=== PATIENT | female | born 1980 | race Caucasian/White ===

== ENCOUNTER 2022-09-02 21:56 | Emergency (ER) | payer OTHER ==
[~2022-09-02] VITALS: Ht 167.6 cm; Wt 64.4 kg
[2022-09-02 22:53] LABS: BASOPHILS % (AUTO) 0.6 % (0.0-5.0); HEMATOCRIT 40.9 % (36-48); LYMPHOCYTES % (AUTO) 26.9 % (21.0-51.0); MEAN CORPUSCULAR HEMOGLOBIN 31.7 pg (27.0-33.0); MEAN CORPUSCULAR VOLUME 93.2 fL (79-99); MONOCYTES % (AUTO) 6.6 % (3.0-13.0); NEUTROPHILS % (AUTO) 63.4 % (40.0-77.0); PLATELET COUNT (AUTO) 366 K/uL (130-400); RED BLOOD CELL COUNT(AUTO) 4.39 MIL/uL (4.00-5.50); WHITE BLOOD COUNT (AUTO) 10.8 K/uL (4.8-10.8)
[2022-09-02 22:58] LABS: APPEARANCE,URINE CLEAR (CLEAR); BILIRUBIN,URINE NEGATIVE (NEGATIVE); COLOR,URINE COLORLESS (YELLOW); GLUCOSE, URINE (UA) NEGATIVE (NEGATIVE); KETONES,URINE NEGATIVE (NEGATIVE); LEUKOCYTE ESTERASE ,URINE 500 Leu/uL (NEGATIVE); NITRATE,URINE NEGATIVE (NEGATIVE); OCCULT BLOOD,URINE NEGATIVE (NEGATIVE); PH,URINE 6.5 (5.0-8.0); PROTEIN,URINE NEGATIVE (NEGATIVE); UROBILINOGEN,URINE 0.2 mg/dL (0.2-1.0)
[2022-09-02 23:03] LABS: CREATININE 0.8 mg/dL (0.5-1.5); POTASSIUM 4.2 mmol/L (3.5-5.1)
[2022-09-02 23:06] LABS: BACTERIA,URINE RARE /HPF (None Seen); RBC,URINE 0-1 /HPF (0-1); SQUAMOUS EPITHELIAL CELL,UR RARE /HPF (0-2)
[2022-09-02 23:07] LABS: ALBUMIN 3.6 g/dL (3.5-5.0); TOTAL PROTEIN, SERUM 7.4 g/dL (6.0-8.3)
[2022-09-02] MEDS ORDERED: ALBUTEROL 0.083% 2.5 MG/3 ML INH IH ONE (23:43)
[2022-09-02] MEDS ORDERED: IPRATROPIUM 0.5 MG/2.5 ML INH IH ONE (23:44)
[2022-09-03] MEDS ORDERED: SOLU-MEDROL 125MG VIAL IVP ONE
[2022-09-03] MEDS ORDERED: ALBUTEROL 0.083% 2.5 MG/3 ML INH IH ONE
[2022-09-03] MEDS ORDERED: IPRATROPIUM/ALBUTEROL SULFATE 3 ML SOLUTION IH ONE
[2022-09-03] MEDS ORDERED: IPRATROPIUM 0.5 MG/2.5 ML INH IH ONE
[2022-09-03] MEDS ORDERED: CEFU500T67 PO (00:26)
[2022-09-03] MEDS ORDERED: PRED20TA3 PO (00:26)
[2022-09-03] MEDS ORDERED: CEFTRIAXONE 1G VIAL IVP ONE (00:30)
[2022-09-03] MEDS ORDERED: CEFTRIAXONE 1G VIAL ONE (00:30)
[2022-09-03 00:35] VITALS: BP 113/65
== END 2022-09-03 00:49 | disposition home or self-care (01) ==
LOC: EDH 21:56
DX: J44.1 Chronic obstructive pulmonary disease with (acute) exacerbation (principal); Z88.1 Allergy status to other antibiotic agents; F17.200 Nicotine dependence, unspecified, uncomplicated; Z98.890 Other specified postprocedural states; Z90.89 Acquired absence of other organs
CPT/HCPCS: 99285; 96374; 71045; 84484; 80053; 83880; 85025; 87088; 81001; 36415; 93005; 94640; 96375; J2930; J0696

== ENCOUNTER 2022-09-12 21:54 | Emergency (ER) | payer OTHER ==
[~2022-09-12] VITALS: Ht 167.6 cm; Wt 65.3 kg
[~2022-09-12 21:54] MED LIST: CEFU500T67 PO; PRED20TA3 PO
[2022-09-12] MEDS ORDERED: IOHEXOL 350 MG/ML 100ML INFUS..BTL IV ONE (22:44)
[2022-09-12] MEDS ORDERED: ACETAMINOPHEN 325 MG TAB PO ONE (23:00)
[2022-09-12 23:01] LABS: BASOPHILS % (AUTO) 0.4 % (0.0-5.0); EOSINOPHILS % (AUTO) 1.2 % (0.0-8.0); HEMATOCRIT 41.2 % (36-48); LYMPHOCYTES % (AUTO) 19.9 % (21.0-51.0); MEAN CORPUSCULAR HEMOGLOBIN 31.7 pg (27.0-33.0); MEAN CORPUSCULAR HGB CONC 33.7 g/dL (32.0-36.0); MEAN CORPUSCULAR VOLUME 94.1 fL (79-99); MONOCYTES % (AUTO) 5.9 % (3.0-13.0); NEUTROPHILS % (AUTO) 72.2 % (40.0-77.0); PLATELET COUNT (AUTO) 324 K/uL (130-400); RED BLOOD CELL COUNT(AUTO) 4.38 MIL/uL (4.00-5.50); RED CELL DISTRIBUTION WIDTH 13.7 % (11.0-15.5); WHITE BLOOD COUNT (AUTO) 11.1 K/uL (4.8-10.8)
[2022-09-12 23:25] LABS: INR 0.99 (0.85-1.15); PROTHROMBIN TIME 10.8 SEC (9.6-11.6)
[2022-09-12 23:27] LABS: PARTIAL THROMBOPLASTIN TIME 26.6 SEC (26.3-35.5)
[2022-09-12 23:36] LABS: ALBUMIN 3.9 g/dL (3.5-5.0); CREATININE 0.8 mg/dL (0.5-1.5); POTASSIUM 3.7 mmol/L (3.5-5.1); TOTAL PROTEIN, SERUM 7.5 g/dL (6.0-8.3)
[2022-09-13] MEDS ORDERED: IBUP-1493 PO (00:20)
[2022-09-13] MEDS ORDERED: CYCL-309 PO (00:20)
[2022-09-13 00:30] VITALS: BP 109/72
== END 2022-09-13 01:15 | disposition home or self-care (01) ==
LOC: EDH 21:54
DX: R07.89 Other chest pain (principal); M54.2 Cervicalgia; J44.9 Chronic obstructive pulmonary disease, unspecified; F17.200 Nicotine dependence, unspecified, uncomplicated; Z88.1 Allergy status to other antibiotic agents; Z90.710 Acquired absence of both cervix and uterus; Z90.89 Acquired absence of other organs; Z98.890 Other specified postprocedural states; V49.9XXA Car occupant (driver) (passenger) injured in unspecified traffic accident, initial encounter; Y93.I9 Activity, other involving external motion; Y92.488 Other paved roadways as the place of occurrence of the external cause; Y99.8 Other external cause status
CPT/HCPCS: 99285; 70450; 84484; 80053; 85025; 85610; 85730; 36415; 72125; 71260; 74177; Q9967

== ENCOUNTER 2022-09-29 19:06 | Emergency (ER) | payer OTHER ==
[~2022-09-29] VITALS: Ht 167.6 cm; Wt 63.5 kg
[~2022-09-29 19:06] MED LIST changes: +CYCL-309 PO; +IBUP-1493 PO
[2022-09-29] MEDS ORDERED: LACTATED RINGERS 1000ML 1,000 ML IV ONE (20:00)
[2022-09-29] MEDS ORDERED: SOLU-MEDROL 125MG VIAL IVP ONE (20:00)
[2022-09-29] MEDS ORDERED: ONDANSETRON 4MG INJ IVP ONE ×2 (20:00→21:30)
[2022-09-29] MEDS ORDERED: MORPHINE 4 MG SYG IVP ONE (20:00)
[2022-09-29 20:36] LABS: BASOPHILS % (AUTO) 0.5 % (0.0-5.0); EOSINOPHILS % (AUTO) 1.7 % (0.0-8.0); HEMATOCRIT 40.6 % (36-48); LYMPHOCYTES % (AUTO) 23.4 % (21.0-51.0); MEAN CORPUSCULAR HGB CONC 34.5 g/dL (32.0-36.0); MEAN CORPUSCULAR VOLUME 92.9 fL (79-99); MONOCYTES % (AUTO) 7.3 % (3.0-13.0); NEUTROPHILS % (AUTO) 66.6 % (40.0-77.0); PLATELET COUNT (AUTO) 379 K/uL (130-400); RED BLOOD CELL COUNT(AUTO) 4.37 MIL/uL (4.00-5.50); RED CELL DISTRIBUTION WIDTH 12.9 % (11.0-15.5); WHITE BLOOD COUNT (AUTO) 8.9 K/uL (4.8-10.8)
[2022-09-29 20:59] LABS: ALBUMIN 3.4 g/dL (3.5-5.0); CREATININE 0.7 mg/dL (0.5-1.5); POTASSIUM 3.5 mmol/L (3.5-5.1); TOTAL PROTEIN, SERUM 6.8 g/dL (6.0-8.3)
[2022-09-29] MEDS ORDERED: HYDROMORPHONE 1 MG INJ IVP ONE ×2 (21:00→21:30)
[2022-09-29] MEDS ORDERED: ONDA4TAB10 PO (21:16)
[2022-09-29] MEDS ORDERED: OXYC-38 PO (21:16)
[2022-09-29] MEDS ORDERED: CIPR-278 PO (21:16)
[2022-09-29] MEDS ORDERED: PRED20TA3 PO (21:16)
[2022-09-29 21:17] VITALS: BP 132/70
== END 2022-09-29 21:49 | disposition home or self-care (01) ==
LOC: EDH 19:06
DX: K50.90 Crohn's disease, unspecified, without complications (principal); J44.9 Chronic obstructive pulmonary disease, unspecified; F17.200 Nicotine dependence, unspecified, uncomplicated; Z88.1 Allergy status to other antibiotic agents; Z90.49 Acquired absence of other specified parts of digestive tract; Z79.899 Other long term (current) drug therapy; Z98.890 Other specified postprocedural states; Z90.710 Acquired absence of both cervix and uterus
CPT/HCPCS: 99284; 96374; 96375; 80053; 83690; 85025; 36415; 96376; J1170 ×2; J2930; J2405 ×2; J2270

== ENCOUNTER 2022-10-03 15:32 | Emergency (ER) | payer OTHER ==
[~2022-10-03] VITALS: Ht 167.6 cm; Wt 63.5 kg
[~2022-10-03 15:32] MED LIST changes: +CIPR-278 PO; +ONDA4TAB10 PO; +OXYC-38 PO
[2022-10-03] MEDS ORDERED: LACTATED RINGERS 1000ML 1,000 ML IV ONE (16:00)
[2022-10-03] MEDS ORDERED: PANTOPRAZOLE 40 MG/VIAL IVP ONE (16:00)
[2022-10-03] MEDS ORDERED: ONDANSETRON 4MG INJ IVP ONE (16:00)
[2022-10-03 16:04] LABS: BASOPHILS % (AUTO) 0.2 % (0.0-5.0); HEMATOCRIT 37.7 % (36-48); LYMPHOCYTES % (AUTO) 10.9 % (21.0-51.0); MEAN CORPUSCULAR HEMOGLOBIN 31.2 pg (27.0-33.0); MEAN CORPUSCULAR HGB CONC 33.7 g/dL (32.0-36.0); MEAN CORPUSCULAR VOLUME 92.6 fL (79-99); MONOCYTES % (AUTO) 2.5 % (3.0-13.0); NEUTROPHILS % (AUTO) 85.6 % (40.0-77.0); PLATELET COUNT (AUTO) 337 K/uL (130-400); RED BLOOD CELL COUNT(AUTO) 4.07 MIL/uL (4.00-5.50); RED CELL DISTRIBUTION WIDTH 12.8 % (11.0-15.5); WHITE BLOOD COUNT (AUTO) 11.3 K/uL (4.8-10.8)
[2022-10-03 16:21] LABS: CREATININE 0.8 mg/dL (0.5-1.5); POTASSIUM 3.6 mmol/L (3.5-5.1)
[2022-10-03 16:31] LABS: ALBUMIN 3.2 g/dL (3.5-5.0); TOTAL PROTEIN, SERUM 6.4 g/dL (6.0-8.3)
[2022-10-03] MEDS ORDERED: DIATR MEGLU/DIATRIZOATE SODIUM 30 ML BOTTLE ONE (16:37)
[2022-10-03 18:12] LABS: AMPHET/METH SCREEN,URINE NEGATIVE (NEGATIVE); BARBITURATE SCREEN, URINE NEGATIVE (NEGATIVE); BENZODIAZEPINES SCREEN,URINE NEGATIVE (NEGATIVE); CANNABINOID SCREEN,URINE NEGATIVE (NEGATIVE); COCAINE SCREEN,URINE NEGATIVE (NEGATIVE); OPIATE SCREEN,URINE NEGATIVE (NEGATIVE); PHENCYCLIDINE SCREEN,URINE NEGATIVE (NEGATIVE)
[2022-10-03] MEDS ORDERED: IOHEXOL 350 MG/ML 100ML INFUS..BTL IV ONE (18:14)
[2022-10-03 20:15] VITALS: BP 122/64
== END 2022-10-03 20:16 | disposition home or self-care (01) ==
LOC: EDH 15:32
DX: K52.9 Noninfective gastroenteritis and colitis, unspecified (principal); J44.9 Chronic obstructive pulmonary disease, unspecified; F17.200 Nicotine dependence, unspecified, uncomplicated; Z90.49 Acquired absence of other specified parts of digestive tract; Z90.710 Acquired absence of both cervix and uterus; Z79.1 Long term (current) use of non-steroidal anti-inflammatories (NSAID); Z79.2 Long term (current) use of antibiotics; Z79.899 Other long term (current) drug therapy; Z88.1 Allergy status to other antibiotic agents
CPT/HCPCS: 99285; 74177; 96374; 96375; 82270; 82550; 80053; 80305; 84702; 83690; 85025; 36415; J7120; Q9963; J2405 ×2; C9113; Q9967

== ENCOUNTER 2022-11-19 22:54 | Emergency (ER) | payer OTHER ==
[~2022-11-19] VITALS: Ht 167.6 cm; Wt 66.9 kg
[2022-11-19 23:15] LABS: BASOPHILS % (AUTO) 0.5 % (0.0-5.0); EOSINOPHILS % (AUTO) 1.7 % (0.0-8.0); HEMATOCRIT 39.8 % (36-48); LYMPHOCYTES % (AUTO) 22.4 % (21.0-51.0); MEAN CORPUSCULAR HEMOGLOBIN 31.2 pg (27.0-33.0); MEAN CORPUSCULAR HGB CONC 34.2 g/dL (32.0-36.0); MEAN CORPUSCULAR VOLUME 91.3 fL (79-99); NEUTROPHILS % (AUTO) 69.1 % (40.0-77.0); PLATELET COUNT (AUTO) 312 K/uL (130-400); RED BLOOD CELL COUNT(AUTO) 4.36 MIL/uL (4.00-5.50); WHITE BLOOD COUNT (AUTO) 9.4 K/uL (4.8-10.8)
[2022-11-19 23:20] LABS: APPEARANCE,URINE CLEAR (CLEAR); BILIRUBIN,URINE NEGATIVE (NEGATIVE); COLOR,URINE LIGHT-YELLOW (YELLOW); GLUCOSE, URINE (UA) NEGATIVE (NEGATIVE); KETONES,URINE NEGATIVE (NEGATIVE); LEUKOCYTE ESTERASE ,URINE NEGATIVE Leu/uL (NEGATIVE); NITRATE,URINE NEGATIVE (NEGATIVE); OCCULT BLOOD,URINE NEGATIVE (NEGATIVE); PH,URINE 5.5 (5.0-8.0); PROTEIN,URINE NEGATIVE (NEGATIVE); UROBILINOGEN,URINE 0.2 mg/dL (0.2-1.0)
[2022-11-19 23:25] LABS: CREATININE 0.8 mg/dL (0.5-1.5); POTASSIUM 3.5 mmol/L (3.5-5.1)
[2022-11-19 23:29] LABS: ALBUMIN 3.3 g/dL (3.5-5.0); TOTAL PROTEIN, SERUM 6.9 g/dL (6.0-8.3)
[2022-11-19] MEDS ORDERED: ONDANSETRON 4MG INJ IVP ONE (23:30)
[2022-11-20] MEDS ORDERED: CYANOCOBALAMIN (VITAMIN B-12) 1000 MCG/ML 1ML VIAL IM STA (00:24)
[2022-11-20] MEDS ORDERED: 0.9%NACL 1000ML 1,000 ML IV ONE (00:30)
[2022-11-20] MEDS ORDERED: IOHEXOL-350 75 ML VIAL IV ONE (01:19)
[2022-11-20] MEDS ORDERED: MESA800T PO (01:55)
[2022-11-20] MEDS ORDERED: BUDE3CAP10 PO (01:55)
[2022-11-20] MEDS ORDERED: DIPH1TAB PO (01:57)
[2022-11-20] MEDS ORDERED: ONDA-104 PO (01:57)
[2022-11-20 02:02] VITALS: BP 101/55
[2022-11-20] MEDS ORDERED: PRED10TA3 PO (16:07)
[2022-11-20] MEDS ORDERED: TRAM50TA4 PO (16:07)
== END 2022-11-20 02:24 | disposition home or self-care (01) ==
LOC: EDH 22:54
DX: K50.00 Crohn's disease of small intestine without complications (principal); F17.200 Nicotine dependence, unspecified, uncomplicated; Z90.49 Acquired absence of other specified parts of digestive tract; Z79.899 Other long term (current) drug therapy; Z98.890 Other specified postprocedural states; Z85.3 Personal history of malignant neoplasm of breast; Z88.1 Allergy status to other antibiotic agents
CPT/HCPCS: 99285; 96374; 96361; 82150; 80053; 83690; 85025; 81003; 36415; 74177; J2405; J7030; Q9967; J3420

== ENCOUNTER 2022-11-20 13:12 | Emergency (ER) | payer OTHER ==
[~2022-11-20] VITALS: Ht 167.6 cm; Wt 64.9 kg
[~2022-11-20 13:12] MED LIST changes: +BUDE3CAP10 PO; +DIPH1TAB PO; +MESA800T PO; +ONDA-104 PO
[2022-11-20] MEDS ORDERED: 0.9%NACL 1000ML 1,000 ML IV ONE (14:30)
[2022-11-20] MEDS ORDERED: FAMOTIDINE 20MG VIAL IV ONE (14:30)
[2022-11-20] MEDS ORDERED: MORPHINE 4 MG SYG IVP ONE (14:30)
[2022-11-20] MEDS ORDERED: ONDANSETRON 4MG INJ IVP ONE (14:30)
[2022-11-20] MEDS ORDERED: SOLU-MEDROL 125MG VIAL IVP ONE (14:30)
[2022-11-20 14:36] LABS: APPEARANCE,URINE CLEAR (CLEAR); BILIRUBIN,URINE NEGATIVE (NEGATIVE); COLOR,URINE YELLOW (YELLOW); GLUCOSE, URINE (UA) NEGATIVE (NEGATIVE); KETONES,URINE NEGATIVE (NEGATIVE); LEUKOCYTE ESTERASE ,URINE NEGATIVE Leu/uL (NEGATIVE); NITRATE,URINE NEGATIVE (NEGATIVE); OCCULT BLOOD,URINE NEGATIVE (NEGATIVE); PH,URINE 5.5 (5.0-8.0); PROTEIN,URINE NEGATIVE (NEGATIVE); UROBILINOGEN,URINE 0.2 mg/dL (0.2-1.0)
[2022-11-20 15:10] LABS: BASOPHILS % (AUTO) 0.3 % (0.0-5.0); EOSINOPHILS % (AUTO) 0.5 % (0.0-8.0); HEMATOCRIT 40.1 % (36-48); LYMPHOCYTES % (AUTO) 21.5 % (21.0-51.0); MEAN CORPUSCULAR HEMOGLOBIN 30.7 pg (27.0-33.0); MEAN CORPUSCULAR HGB CONC 34.2 g/dL (32.0-36.0); MEAN CORPUSCULAR VOLUME 89.9 fL (79-99); MONOCYTES % (AUTO) 6.3 % (3.0-13.0); NEUTROPHILS % (AUTO) 71.2 % (40.0-77.0); PLATELET COUNT (AUTO) 341 K/uL (130-400); RED BLOOD CELL COUNT(AUTO) 4.46 MIL/uL (4.00-5.50); RED CELL DISTRIBUTION WIDTH 13.1 % (11.0-15.5); WHITE BLOOD COUNT (AUTO) 8.7 K/uL (4.8-10.8)
[2022-11-20 15:18] LABS: CREATININE 0.7 mg/dL (0.5-1.5); POTASSIUM 3.9 mmol/L (3.5-5.1)
[2022-11-20 15:23] LABS: ALBUMIN 3.5 g/dL (3.5-5.0); TOTAL PROTEIN, SERUM 7.2 g/dL (6.0-8.3)
[2022-11-20] MEDS ORDERED: PRED10TA3 PO (16:07)
[2022-11-20] MEDS ORDERED: TRAM50TA4 PO (16:07)
[2022-11-20 16:29] VITALS: BP 110/62
== END 2022-11-20 16:37 | disposition home or self-care (01) ==
LOC: EDH 13:12
DX: K50.00 Crohn's disease of small intestine without complications (principal); F17.200 Nicotine dependence, unspecified, uncomplicated; Z79.899 Other long term (current) drug therapy; Z98.890 Other specified postprocedural states; Z85.3 Personal history of malignant neoplasm of breast; Z88.1 Allergy status to other antibiotic agents
CPT/HCPCS: 99284; 96374; 96375; 96361; 80053; 83690; 85025; 81025; 36415; J3490; J7030; J2930; J2405; J2270

== ENCOUNTER 2023-02-13 18:23 | Emergency (ER) | payer BC, OTHER ==
[~2023-02-13] VITALS: Ht 167.6 cm; Wt 63.5 kg
[~2023-02-13 18:23] MED LIST changes: -CEFU500T67 PO; -CIPR-278 PO; -CYCL-309 PO; -IBUP-1493 PO; -ONDA4TAB10 PO; -OXYC-38 PO; +PRED10TA3 PO; -PRED20TA3 PO; +TRAM50TA4 PO
[2023-02-13 18:29] VITALS: BP 120/72; PULSE 84; RESP 16
[2023-02-13 19:19] LABS: CREATININE 0.7 mg/dL (0.5-1.5); POTASSIUM 3.5 mmol/L (3.5-5.1)
[2023-02-13 19:23] LABS: ALBUMIN 3.5 g/dL (3.5-5.0); TOTAL PROTEIN, SERUM 7.4 g/dL (6.0-8.3)
[2023-02-16] MEDS ORDERED: ONDA22I PO (23:54)
[2023-02-16] MEDS ORDERED: CIPR-278 PO (23:54)
[2023-02-16] MEDS ORDERED: METR375C2 PO (23:54)
[2023-02-16] MEDS ORDERED: PRED20TA3 PO (23:56)
== END 2023-02-13 22:27 | disposition left against medical advice (07) ==
LOC: EDH 18:23
DX: R10.9 Unspecified abdominal pain (principal); Z53.21 Procedure and treatment not carried out due to patient leaving prior to being seen by health care provider
CPT/HCPCS: 36415; 80053; 83690